=== PATIENT | female | born 1985 | race Caucasian/White ===

== ENCOUNTER 2023-07-27 09:42 | Emergency (ER) | payer SELFPAY ==
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
[2023-07-27 09:53] VITALS: BP 133/82; PULSE 114; RESP 20; TEMP 36.4; O2SAT 98; BMI 38.2
[2023-07-27 10:42] VITALS: BP 124/80; PULSE 105; RESP 21; TEMP 36.9; O2SAT 100
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
--- NOTE | 2023-07-27 10:53 | PC.NURSE ---
tech obtaining urine and sending to lab.
[2023-07-27 11:00] LABS: Appearance Urine Cloudy; Color Urine Yellow; Glucose Urine UA Negative (Negative); Leukocyte Esterase Urine Negative (Negative); Nitrite Urine Negative (Negative); Specific Gravity - Urine <= 1.005 (1.005-1.025); UMIC TRIGGER UACC YES; Urine Blood Trace (Negative); Urine Ketones Negative (Negative); Urine Protein Negative (Neg-Trace)
[2023-07-27 11:09] LABS: Bacteria Urine Trace (None Seen); Hyaline Casts Urine 0-2 /LPF (0-2); Squamous Epithelial Cell Urine >20 /HPF (0-2); WBC Urine 0-5 /HPF (0-5)
[2023-07-27] MEDS: Cyclobenzaprine HCl 10 MG TABLET PO (11:12)
--- NOTE | 2023-07-27 11:24 | PC.NURSE ---
20gIV placed in right Ac w/o difficulty - labs drawn and sent to lab. medication administered per provider order. pt requesting pain medication aside from muscle relaxer that was just administered will notify provider.
[2023-07-27 11:28] LABS: MANUAL DIFF FLAG NO
[2023-07-27 11:29] LABS: Amphetamine Screen Urine Not Detected (Not Detect); Barbiturates, Urine Not Detected (Not Detect); Benzodiazepines Screen Urine Not Detected (Not Detect); Cannabinoid Screen Urine Not Detected (Not Detect); Cocaine Screen Urine Not Detected (Not Detect); Fentanyl, urine Not Detected (Not Detect); Opiate Screen Urine Not Detected (Not Detect); Phencyclidine Screen Urine Not Detected (Not Detect)
[2023-07-27 11:30] LABS: Basophils Absolute Auto 0.1 X10*3/uL (0.0-0.2); Basophils Percent Auto 0.4 % (0-2); Eosinophils Percent Auto 0.2 % (0-4); Hematocrit 35.5 % (37.0-47.0); Hemoglobin 11.6 g/dl (12.0-16.0); Imm Gran Abs Auto 0.06 X10*3/uL (0.00-0.03); Imm Gran Pct Auto 0.4 % (0.0-0.4); Lymphocytes Absolute Auto 1.6 X10*3/uL (1.2-4.9); Lymphocytes Percent Auto 10.5 % (20-40); Mean Corpuscular HGB Conc 32.7 g/dl (31.0-35.0); Mean Corpuscular Hemoglobin 26.3 pg (27.0-33.0); Mean Corpuscular Volume 80.5 fL (80.0-98.0); Mean Platelet Volume 9.8 fL (9.4-12.3); Monocytes Percent Auto 6.2 % (2-11); Neutrophils Absolute Auto 12.5 x10*3/uL (2.0-8.3); Neutrophils Percent Auto 82.3 % (45-73); Platelet Count 403 X10*3/uL (160-400); Red Blood Count 4.41 X10*6/uL (4.20-5.50); Red Cell Distribution Width 15.7 % (11.0-16.0); White Blood Count 15.2 X10*3/uL (4.8-10.8)
[2023-07-27 11:36] LABS: Prothrombin Time 12.3 SEC (11.1-13.3)
[2023-07-27 11:52] LABS: Alanine Aminotransferase 30 U/L (0-31); Albumin Level 3.9 g/dL (3.5-5.0); Alkaline Phosphatase 133 U/L (39-117); Anion Gap 14 (12-20); Aspartate Amino Transferase 17 U/L (5-31); Bilirubin Direct < 0.2 mg/dL (0.0-0.5); Bilirubin Total 0.2 mg/dL (0.0-1.0); Blood Urea Nitrogen 5 mg/dL (9-16); Calcium 9.5 mg/dL (8.4-10.2); Carbon Dioxide 21 mmol/L (22-29); Chloride 109 mmol/L (96-108); Creatinine Clr Calc Pharmacy 112.3; Estimated Glomerular Filt Rate > 60; Glucose Random 139 mg/dL (60-115); Lipase 13 U/L (8-78); Potassium 3.7 mmol/L (3.3-5.1); Sodium 140 mmol/L (135-145); Total Protein 7.6 g/dL (6.5-8.0)
[2023-07-27 11:58] LABS: HCG Quantitative < 2 mIU/mL
[2023-07-27 12:00] VITALS: BP 129/78; PULSE 103; RESP 18; O2SAT 100
--- NOTE | 2023-07-27 12:06 | PC.NURSE ---
pt wants to leave AMA - provider notified and aware. this RN removed pt's IV.
--- NOTE | 2023-07-27 12:13 | PC.NURSE ---
pt now wants to stay and go to CT. will place another IV for contrast to be administered. provider aware.
--- NOTE | 2023-07-27 12:19 | PC.NURSE ---
vss and up to date at this time. new 20gIV placed in left AC w/o difficulty. pt awaiting CT.
--- NOTE | 2023-07-27 13:01 | PC.NURSE ---
pt to CT at this time.
--- NOTE | 2023-07-27 14:38 | PC.NURSE ---
pt still awaiting CT results but want to leave AMA for 2nd time throughout stay. IV removed. d/c paperwork provided.
== END 2023-07-27 14:55 | disposition left against medical advice (07) ==
PROVIDERS: Physician Assistant; Emergency Provider Student in an Organized Health Care Education/Training Program
DX: S06.9XAA Unspecified intracranial injury with loss of consciousness status unknown, initial encounter (principal); V86.69XA Passenger of other special all-terrain or other off-road motor vehicle injured in nontraffic accident, initial encounter; R10.9 Unspecified abdominal pain; M54.50 Low back pain, unspecified; Z76.5 Malingerer [conscious simulation]; Y93.9 Activity, unspecified; Y92.89 Other specified places as the place of occurrence of the external cause; Y99.9 Unspecified external cause status
CPT/HCPCS: 36415; 70450; 71260; 72125; 74177; 80048; 80076; 80307; 81001; 81003; 83690; 84702; 85025; 85610; 99284